=== PATIENT | female | born 1980 | race American Indian/Alaskan Native ===

== ENCOUNTER 2018-05-16 08:19 | Emergency (ER) | payer OTHER ==
[2018-05-16] MEDS ORDERED: BICILLIN L-A IM ONE (09:18)
[2018-05-16] MEDS ORDERED: SOLU-Medrol IM ONE (09:18)
[2018-05-16] MEDS ORDERED: LIDOCAINE VISCOUS 2% PO ONE (09:18)
[2018-05-16] MEDS ORDERED: ALUM-MAG HYDROX-SIMETH 200-200-20MG/5ML PO ONE (09:18)
[2018-05-16] MEDS ORDERED: MOTRIN PO ONE (09:19)
--- NOTE | 2018-05-16 09:21 | Emergency Department Report ---
ED ENT HPI - General Chief complaint: Sore Throat Stated complaint: SORE THROAT Time Seen by Provider: 05/16/18 09:12 Source: patient Mode of arrival: Ambulatory Limitations: No Limitations - History of Present Illness Initial comments: Patient is a 37-year-old female who presents to ED complaining of throat pain 7 days. Patient describes pain as throbbing in nature, 8 out of 10 intensity, nonradiating, localized to his throat. Admits pain with swallowing and eating. Patient admits fever for the first 2 days but not at the moment. Patient denies nausea/vomiting/abdominal pain/shortness of breath/chest pain/headache. MD complaint: sore throat, difficulty swallowing -: Gradual, week(s) (1) Location: throat Quality: aching, constant Improves with: none Worsens with: swallowing, eating Associated Symptoms: fever, pain with swallowing, sore throat. denies: cough, gum swelling, discharge from ear, rhinorrhea - Related Data Previous Rx's Medication Instructions Recorded Last Taken Type Ibuprofen [Motrin] 600 mg PO Q8H PRN #30 tablet 05/16/18 Unknown Rx Nystas/Diphen/Xyl Visc/Mylanta 15 ml MM Q4H PRN #120 ml 05/16/18 Unknown Rx [Magic Mouthwash] Allergies Allergy/AdvReac Type Severity Reaction Status Date / Time acetaminophen Allergy Hives Verified 05/16/18 08:24 ED Dental HPI - General Chief complaint: Sore Throat Stated complaint: SORE THROAT Time Seen by Provider: 05/16/18 09:12 Source: patient Mode of arrival: Ambulatory Limitations: No Limitations - Related Data Previous Rx's Medication Instructions Recorded Last Taken Type Ibuprofen [Motrin] 600 mg PO Q8H PRN #30 tablet 05/16/18 Unknown Rx Nystas/Diphen/Xyl Visc/Mylanta 15 ml MM Q4H PRN #120 ml 05/16/18 Unknown Rx [Magic Mouthwash] Allergies Allergy/AdvReac Type Severity Reaction Status Date / Time acetaminophen Allergy Hives Verified 05/16/18 08:24 ED Review of Systems ROS: Stated complaint: SORE THROAT Other details as noted in HPI Comment: All other systems reviewed and negative ED Past Medical Hx - Past Medical History Previous Medical History?: No - Surgical History Past Surgical History?: No - Social History Smoking Status: Never Smoker Substance Use Type: None - Medications Home Medications: Home Medications Medication Instructions Recorded Confirmed Last Taken Type Ibuprofen [Motrin] 600 mg PO Q8H PRN #30 tablet 05/16/18 Unknown Rx Nystas/Diphen/Xyl Visc/Mylanta 15 ml MM Q4H PRN #120 ml 05/16/18 Unknown Rx [Magic Mouthwash] ED Physical Exam - General Limitations: No Limitations General appearance: alert, in no apparent distress - Head Head exam: Present: atraumatic, normocephalic - Eye Eye exam: Present: normal appearance - ENT ENT exam: Present: mucous membranes moist - Expanded ENT Exam Expanded Mouth exam: Present: normal external inspection Teeth exam: Present: normal inspection Throat exam: Positive: tonsillar erythema, tonsillomegaly, tonsillar exudate - Neck Neck exam: Present: normal inspection, tenderness, full ROM, lymphadenopathy - Respiratory Respiratory exam: Present: normal lung sounds bilaterally. Absent: respiratory distress - Cardiovascular Cardiovascular Exam: Present: regular rate, normal rhythm. Absent: systolic murmur, diastolic murmur, rubs, gallop - GI/Abdominal GI/Abdominal exam: Present: soft, normal bowel sounds - Extremities Exam Extremities exam: Present: normal inspection - Back Exam Back exam: Present: normal inspection - Neurological Exam Neurological exam: Present: alert, oriented X3 - Psychiatric Psychiatric exam: Present: normal affect, normal mood - Skin Skin exam: Present: warm, dry, intact, normal color. Absent: rash ED Course Vital Signs 05/16/18 08:22 Temperature 97.9 F Pulse Rate 94 H Respiratory 18 Rate Blood Pressure 170/83 O2 Sat by Pulse 97 Oximetry ED Medical Decision Making - Medical Decision Making 22-year-old male presents with strep pharyngitis. ED course: Rapid strep clinically diagnosed based on signs and symptoms [facility]'s crit 4 of 5 Patient received 1.2 million units of penicillin, 125 Solu-Medrol, and Magic mouthwash Vital signs stable patient is in no acute or respiratory distress. Discussed findings with patient about the positive strep. Discussed treatment in ED with patient Discussed the patient that strep throat is contagious and to limit sharing spoons and such. Discussed with patient follow-up with primary care physician. Patient verbally states he understands and will comply to follow-up. Critical care attestation.: If time is entered above; I have spent that time in minutes in the direct care of this critically ill patient, excluding procedure time. ED Disposition Clinical Impression: Strep pharyngitis, Acute tonsillitis Disposition: TO HOME OR SELFCARE Is pt being admited?: No Does the pt Need Aspirin: No Condition: Stable Instructions: Tonsillitis (ED), Pharyngitis (ED), Strep Throat (ED) Additional Instructions: Make sure to follow up with the primary care physician as discussed. Take all your medications as you've been prescribed. If you have any worsening symptoms or develop new symptoms please return to ED immediately. Prescriptions: Ibuprofen [Motrin] 600 mg PO Q8H PRN #30 tablet PRN Reason: Pain Nystas/Diphen/Xyl Visc/Mylanta [Magic Mouthwash] 15 ml MM Q4H PRN #120 ml PRN Reason: Sore Throat Referrals: OLMAN MELLO MD [Staff Physician] - 3-5 Days [facility] [Outside] - 3-5 Days [facility] [Outside] - 3-5 Days Forms: Work/School Release Form(ED) Time of Disposition: 09:24
[2018-05-16 09:55] VITALS: BP 164/81
== END 2018-05-16 09:54 | disposition home or self-care (01) ==
LOC: ED 08:19
DX: J02.0 Streptococcal pharyngitis (principal); J03.90 Acute tonsillitis, unspecified
CPT/HCPCS: 96372; 99282; J0561; J2930

== ENCOUNTER 2018-05-17 10:00 | Emergency (ER) | payer OTHER ==
[2018-05-17 10:04] VITALS: BP 174/73
[2018-05-17 10:51] LABS: Basophils # (Auto) 0.1 K/mm3 (0.0-0.1); Basophils % (Auto) 0.5 % (0.0-1.8); Hematocrit 37.6 % (30.3-42.9); Hemoglobin 12.2 gm/dl (10.1-14.3); Lymphocytes # (Auto) 2.3 K/mm3 (1.2-5.4); Lymphocytes % (Auto) 12.5 % (13.4-35.0); Mean Corpuscular HGB Conc 32 % (30-34); Mean Corpuscular Volume 91 fl (79-97); Monocytes # (Auto) 1.2 K/mm3 (0.0-0.8); Monocytes % (Auto) 6.5 % (0.0-7.3); Platelet Count 338 K/mm3 (140-440); Red Blood Count 4.12 M/mm3 (3.65-5.03); Red Cell Distribution Width 13.3 % (13.2-15.2)
[2018-05-17] MEDS ORDERED: CLEOCIN 900 MG/50 mL 900 MG/50 ML BAG IV SCH (11:00)
--- NOTE | 2018-05-17 11:03 | Emergency Department Report ---
ED ENT HPI - General Chief complaint: Sore Throat Stated complaint: STREP THROAT/TONSILS/BODY PAIN Time Seen by Provider: 05/17/18 10:10 Source: patient Mode of arrival: Ambulatory Limitations: No Limitations - History of Present Illness Initial comments: 37-year-old female returns to the ED complaining about similar symptoms from yesterday. She states that her throat is still hurting and is painful to swallow fluids.She denies any other symptoms. Patient states she did not start taking her medication yet. Patient states she is able to swallow fluids and some solids. MD complaint: sore throat -: Gradual Severity: moderate Severity scale (0 -10): 7 Quality: aching Consistency: constant - Related Data Previous Rx's Medication Instructions Recorded Last Taken Type Ibuprofen [Motrin] 600 mg PO Q8H PRN #30 tablet 05/16/18 Unknown Rx Nystas/Diphen/Xyl Visc/Mylanta 15 ml MM Q4H PRN #120 ml 05/16/18 Unknown Rx [Magic Mouthwash] Allergies Allergy/AdvReac Type Severity Reaction Status Date / Time acetaminophen Allergy Hives Verified 05/16/18 08:24 ED Dental HPI - General Chief complaint: Sore Throat Stated complaint: STREP THROAT/TONSILS/BODY PAIN Time Seen by Provider: 05/17/18 10:10 Source: patient Mode of arrival: Ambulatory Limitations: No Limitations - Related Data Previous Rx's Medication Instructions Recorded Last Taken Type Ibuprofen [Motrin] 600 mg PO Q8H PRN #30 tablet 05/16/18 Unknown Rx Nystas/Diphen/Xyl Visc/Mylanta 15 ml MM Q4H PRN #120 ml 05/16/18 Unknown Rx [Magic Mouthwash] Allergies Allergy/AdvReac Type Severity Reaction Status Date / Time acetaminophen Allergy Hives Verified 05/16/18 08:24 ED Review of Systems ROS: Stated complaint: STREP THROAT/TONSILS/BODY PAIN Other details as noted in HPI Comment: All other systems reviewed and negative Constitutional: denies: chills, fever Eyes: denies: eye pain, eye discharge, vision change ENT: denies: ear pain, throat pain Respiratory: denies: cough, shortness of breath, wheezing Cardiovascular: denies: chest pain, palpitations Endocrine: no symptoms reported Gastrointestinal: denies: abdominal pain, nausea, diarrhea Genitourinary: denies: urgency, dysuria, discharge Musculoskeletal: denies: back pain, joint swelling, arthralgia Skin: denies: rash, lesions Neurological: denies: headache, weakness, paresthesias Psychiatric: denies: anxiety, depression Hematological/Lymphatic: denies: easy bleeding, easy bruising ED Past Medical Hx - Social History Smoking Status: Never Smoker Substance Use Type: None - Medications Home Medications: Home Medications Medication Instructions Recorded Confirmed Last Taken Type Ibuprofen [Motrin] 600 mg PO Q8H PRN #30 tablet 05/16/18 Unknown Rx Nystas/Diphen/Xyl Visc/Mylanta 15 ml MM Q4H PRN #120 ml 05/16/18 Unknown Rx [Magic Mouthwash] ED Physical Exam - General Limitations: No Limitations (I did) General appearance: alert, in no apparent distress - Head Head exam: Present: atraumatic, normocephalic - Eye Eye exam: Present: normal appearance Pupils: Present: normal accommodation - ENT ENT exam: Present: mucous membranes moist - Expanded ENT Exam Expanded Throat exam: Positive: tonsillar erythema, tonsillomegaly. Negative: tonsillar exudate, R peritonsillar mass, L peritonsillar mass - Neck Neck exam: Present: normal inspection, full ROM, lymphadenopathy. Absent: tenderness - Respiratory Respiratory exam: Present: normal lung sounds bilaterally. Absent: respiratory distress - Cardiovascular Cardiovascular Exam: Present: regular rate, normal rhythm. Absent: systolic murmur, diastolic murmur, rubs, gallop - GI/Abdominal GI/Abdominal exam: Present: soft, normal bowel sounds - Extremities Exam Extremities exam: Present: normal inspection - Back Exam Back exam: Present: normal inspection - Neurological Exam Neurological exam: Present: alert, oriented X3 - Psychiatric Psychiatric exam: Present: normal affect, normal mood - Skin Skin exam: Present: warm, dry, intact, normal color. Absent: rash ED Course Vital Signs 05/17/18 10:02 Temperature 97.9 F Pulse Rate 89 Respiratory 16 Rate Blood Pressure 174/73 [Right] O2 Sat by Pulse 98 Oximetry ED Medical Decision Making - Lab Data Result diagrams: 05/17/18 10:39 05/17/18 10:39 - Radiology Data Radiology results: report reviewed, image reviewed CT NECK WITH CONTRAST: 05/17/18 10:00:00 CLINICAL: Throat swelling. Can't swallow. TECHNIQUE: Volumetric acquisition and 1.25 mm scan reconstructionsafter the uneventful intravenous injection of 100-cc Omnipaque 350. Consent was obtained prior to the administration of the IV contrast. FINDINGS: Bilateral palatine tonsillar enlargement, left larger than right. No tonsillar abscess. The airway is narrowed at the level of the tonsils the diameter 1 cm but is otherwise widely patent. Otherwise normal mucosal structures of the nasopharynx, oropharynx, hypopharynx and larynx. Bilateral jugular lymph node enlargement. The largest lymph node on the right is a level II lymph node measuring 1.6 x 1.1 cm and the largest lymph node on the left is a level II lymph node measuring 1.5 x 1.2 cm. Node neck mass or fluid collection. Normal salivary glands. The parapharyngeal spaces are normal. Normal thyroid and trachea. The upper lung rodriguez are clear. IMPRESSION: Bilateral tonsillitis with no abscess. Moderate bilateral cervical lymphadenopathy. Transcribed By: REF Dictated By: JOSE KEY MD Electronically Authenticated By: JOSE KEY MD Signed Date/Time: 05/17/18 1203 - Medical Decision Making 37-year-old female presents with tonsillitis. CT scan of the neck shows no sign abscess in the tonsils. Patient has been treated with antibiotics in the ED. Reassured patient mentions to go home and take her medication as prescribed. Discussed the patient since airway is compromised she will be fine taking the antibiotics. Discussed antibiotics and pain meds needed to help with symptoms. Discussed follow-up with primary care physician 3-5 days. Vital signs are normal and she is in no acute distress or respiratory distress. She is on instructions and states she will follow up. Critical care attestation.: If time is entered above; I have spent that time in minutes in the direct care of this critically ill patient, excluding procedure time. ED Disposition Clinical Impression: Acute tonsillitis, Tonsillitis Disposition: - TO HOME OR SELFCARE Is pt being admited?: No Does the pt Need Aspirin: No Condition: Stable Instructions: Tonsillitis (ED) Additional Instructions: Make sure to follow up with the primary care physician as discussed. Take all your medications as you've been prescribed. Go to another pharmacy and received your magic mouthwash as prescribed yesterday. If you have any worsening symptoms or develop new symptoms please return to ED immediately. Referrals: VIVEK SOSA MD [Primary Care Provider] - 3-5 Days Forms: Accompanied Note, Work/School Release Form(ED)
[2018-05-17 11:14] LABS: BUN/Creatinine Ratio 28; Blood Urea Nitrogen 14 mg/dL (7-17); Calcium 9.7 mg/dL (8.4-10.2); Hemolysis Index 55
[2018-05-17] MEDS ORDERED: TORADOL IV ONE (11:31)
[2018-05-17] MEDS ORDERED: ROCEPHIN 500 MG in NACL 0.9% 50 ML IV ONE (11:33)
--- NOTE | 2018-05-17 12:09 | Cat Scan Report ---
CT NECK WITH CONTRAST: 05/17/18 10:00:00 CLINICAL: Throat swelling. Can't swallow. TECHNIQUE: Volumetric acquisition and 1.25 mm scan reconstructionsafter the uneventful intravenous injection of 100-cc Omnipaque 350. Consent was obtained prior to the administration of the IV contrast. FINDINGS: Bilateral palatine tonsillar enlargement, left larger than right. No tonsillar abscess. The airway is narrowed at the level of the tonsils the diameter 1 cm but is otherwise widely patent. Otherwise normal mucosal structures of the nasopharynx, oropharynx, hypopharynx and larynx. Bilateral jugular lymph node enlargement. The largest lymph node on the right is a level II lymph node measuring 1.6 x 1.1 cm and the largest lymph node on the left is a level II lymph node measuring 1.5 x 1.2 cm. Node neck mass or fluid collection. Normal salivary glands. The parapharyngeal spaces are normal. Normal thyroid and trachea. The upper lung rodriguez are clear. IMPRESSION: Bilateral tonsillitis with no abscess. Moderate bilateral cervical lymphadenopathy.
== END 2018-05-17 13:21 | disposition home or self-care (01) ==
LOC: ED 10:00
DX: J03.90 Acute tonsillitis, unspecified (principal); Z88.8 Allergy status to other drugs, medicaments and biological substances
CPT/HCPCS: 36415; 70491; 80048; 85025; 96365; 96367; 96375; 99284; J0696; J1885; Q9967